=== PATIENT | male | born 1970 | race Caucasian/White ===

== ENCOUNTER 2017-08-10 08:21 | Inpatient (IN) | payer MEDICARE, BC, OTHER ==
[~2017-08-10] VITALS: Ht 157.5 cm; Wt 79.4 kg
[2017-08-10] VITALS (14 sets, daily range): BP systolic 89–110; BP diastolic 46–77
[~2017-08-10 08:21] MED LIST: AMOXICILLIN500 MG ORAL; BARACLUDE0.5 MG ORAL; BISACODYL5 MG ORAL; FLUDROCORTISON0.1 MG PO; LEVOTHYROXINE100 MCG ORAL; OMEPRAZOLE40 M1 ORAL; OSELTAMIVIR PHO75 MG PO; PRO-AMATINE5 M1 ORAL; PROBIOTIC1 EAC2 PO; UNOBMED
--- NOTE | 2017-08-10 08:28 | Emergency Room Report ---
History of Present Illness General Chief Complaint: Altered Level of Consciousness Source: Family Member Present Illness HPI Patient is here with family his sister brought in by paramedics she reports that patient appeared sick from last week coughing Was put on antibiotics several days ago and as the patient's condition decompensated presents to the ER Patient is minimally responsive to physical stimuli he does open his eyes however appears in respiratory distress Patient has history of Down syndrome, paraplegia, cervical ostemyelitis sister reports patient has been intubated several times at [facility] Patient himself is nonverbal at this time however he has been coughing questionable low-grade fevers Decreased oral intake History of present illness is limited given the patient's mentation Allergies: Coded Allergies: No Known Allergies (Unverified , 08/10/17) Patient History Limited by: medical condition Past Medical History: see triage record Pertinent Family History: unable to obtain Reviewed Nursing Documentation: PMH: Agreed, PSxH: Agreed Review of Systems All Other Systems: limited - Other than the ones mentioned in the history of present illness all others are reviewed however they do stay limited due to the patient's mental status Physical Exam Vital Signs Date Time Temp Pulse Resp B/P (MAP) Pulse Ox O2 Delivery O2 Flow Rate FiO2 08/10/17 08:06 99.0 91 28 97/37 96 Nasal Cannula 4.0 Sp02 EP Interpretation: reviewed, normal General Appearance: moderate distress - Patient appears tachypneic, appears ill Head: other - Patient has facial and occipital features in line with Down syndrome Eyes: bilateral eye PERRL ENT: dry mucus membranes Neck: supple, other - Tracheostomy scar in place Respiratory: crackles - Bilaterally, patient has appearance of labored respiration with costophrenic angle retractions Cardiovascular #1: regular rate, rhythm Gastrointestinal: distended - With large midabdominal scar decreased bowel sounds Genitourinary: no CVA tenderness Musculoskeletal: other - Paraplegia, patient has decreased movement in upper extremities, does purposefully move both arms supports physical stimuli Neurologic: other - Decreased GCS, patient responds to physical stimuli, is nonverbal Skin: no rash Lymphatic: no adenopathy Procedures Critical Care Time Critical Care Time 50 minutes for critical presentation, findings concerning for end of life and end organ pathology consultants discussion with family not including any procedural time Medical Decision Making Diagnostic Impression: Primary Impression: Respiratory distress Additional Impressions: Renal insufficiency CHF (congestive heart failure) Aspiration into airway ER Course Patient presents in extremely critical condition Hypotensive with labored respirations X-ray imaging is abnormal with appearance of mixed picture infiltrate with congestion as well initial ABG is extremely concerning with acidosis and low pH Repeat ABG has improved on BiPAP Patient remains much more oriented Opens eyes to simple verbal commands Patient was provided with diuretics Antibiotics At this time daughter at bedside reports that patient is intubated every time he goes to [facility] She does clalify that he has been intubated multiple times but not on every presentation Patient is in critical condition Pulmonology environmental auditor the patient is at bedside as well Given the improved ABG, airway intubation has been held thus far However given the patient's critical presentation patient could deteriorate I have explained to the family on multiple occasions given the patient's presentation with the possibility of this occurring Patient is extremely poor prognosis And admitted to intensive care unit for critical care Labs Test 08/10/17 08:21 08/10/17 08:45 08/10/17 08:58 08/10/17 10:09 Arterial Blood pH 7.160 (7.350-7.450) 7.210 (7.350-7.450) Arterial Blood Partial Pressure CO2 83.9 mmHg (35.0-45.0) 67.2 mmHg (35.0-45.0) Arterial Blood Partial Pressure O2 62.5 mmHg (75.0-100.0) 67.6 mmHg (75.0-100.0) Arterial Blood HCO3 29.6 mmol/L (22.0-26.0) 26.7 mmol/L (22.0-26.0) Arterial Blood Oxygen Saturation 93.0 % (92.0-98.0) 92.0 % (92.0-98.0) Arterial Blood Base Excess -1.6 -1.9 Rigo Test Positive Positive Urine Color Pale yellow Urine Appearance Cloudy Urine pH 5 (4.5-8.0) Urine Specific Tyler 1.015 (1.005-1.035) Urine Protein 3+ (NEGATIVE) Urine Glucose (UA) Negative (NEGATIVE) Urine Ketones 1+ (NEGATIVE) Urine Occult Blood 5+ (NEGATIVE) Urine Nitrite Negative (NEGATIVE) Urine Bilirubin Negative (NEGATIVE) Urine Urobilinogen Normal MG/DL (0.0-1.0) Urine Leukocyte Esterase 3+ (NEGATIVE) Urine RBC 5-10 /HPF (0 - 0) Urine WBC 30-40 /HPF (0 - 0) Urine Squamous Epithelial Cells Few /LPF (NONE/OCC) Urine Bacteria Moderate /HPF (NONE) White Blood Count 3.3 K/UL (4.8-10.8) Red Blood Count 3.22 M/UL (4.70-6.10) Hemoglobin 11.9 G/DL (14.2-18.0) Hematocrit 36.0 % (42.0-52.0) Mean Corpuscular Volume 112 FL (80-99) Mean Corpuscular Hemoglobin 36.9 PG (27.0-31.0) Mean Corpuscular Hemoglobin Concent 33.0 G/DL (32.0-36.0) Red Cell Distribution Width 14.4 % (11.6-14.8) Platelet Count 61 K/UL (150-450) Mean Platelet Volume 7.5 FL (6.5-10.1) Neutrophils (%) (Auto) % (45.0-75.0) Lymphocytes (%) (Auto) % (20.0-45.0) Monocytes (%) (Auto) % (1.0-10.0) Eosinophils (%) (Auto) % (0.0-3.0) Basophils (%) (Auto) % (0.0-2.0) Differential Total Cells Counted 100 Neutrophils % (Manual) 79 % (45-75) Lymphocytes % (Manual) 11 % (20-45) Monocytes % (Manual) 6 % (1-10) Eosinophils % (Manual) 0 % (0-3) Basophils % (Manual) 0 % (0-2) Band Neutrophils 4 % (0-8) Nucleated Red Blood Cells 1 /100 WBC Platelet Estimate Decreased Platelet Morphology Normal Anisocytosis 1+ Macrocytosis 1+ Sodium Level 133 MMOL/L (136-145) Potassium Level 5.6 MMOL/L (3.5-5.1) Chloride Level 102 MMOL/L (98-107) Carbon Dioxide Level 29 MMOL/L (21-32) Anion Gap 2 mmol/L (5-15) Blood Urea Nitrogen 53 mg/dL (7-18) Creatinine 2.4 MG/DL (0.55-1.30) Estimat Glomerular Filtration Rate 29.2 mL/min (>60) Glucose Level 187 MG/DL (74-106) Lactic Acid Level 0.90 mmol/L (0.66-2.22) Calcium Level 7.9 MG/DL (8.5-10.1) Total Bilirubin 0.7 MG/DL (0.2-1.0) Aspartate Amino Transf (AST/SGOT) 28 U/L (15-37) Alanine Aminotransferase (ALT/SGPT) 8 U/L (12-78) Alkaline Phosphatase 65 U/L (46-116) Total Creatine Kinase 75 U/L (26-308) Creatine Kinase MB 1.2 NG/ML (0.0-3.6) Creatine Kinase MB Relative Index 1.6 Troponin I 0.187 ng/mL (0.000-0.056) Pro-B-Type Natriuretic Peptide 67161 pg/mL (0-125) Total Protein 7.9 G/DL (6.4-8.2) Albumin 2.5 G/DL (3.4-5.0) Globulin 5.4 g/dL Albumin/Globulin Ratio 0.5 (1.0-2.7) EKG Diagnostic Results Rate: normal Rhythm: NSR ST Segments: other - Nonspecific ST T-wave changes Rhythm Strip Diag. Results EP Interpretation: yes Rate: 65 Rhythm: NSR, no PVC's, no ectopy Chest X-Ray Diagnostic Results Chest X-Ray Diagnostic Results : Chest X-Ray Ordered: Yes # of Views/Limited/Complete: 1 View Indication: Shortness of Breath EP Interpretation: Yes Interpretation: no pneumothorax, other - Bilateral pulmonary congestion, difficult to evaluate underlying infiltrate heart size borderline enlarged, Impression: Other - congestion, possible infiltrate Electronically Signed by: Jun Davidson DO Last Vital Signs Date Time Temp Pulse Resp B/P (MAP) Pulse Ox O2 Delivery O2 Flow Rate FiO2 08/10/17 08:06 99.0 91 28 97/37 96 Nasal Cannula 4.0 Status: improved Disposition: ADMITTED INPATIENT Condition: Critical JUN DAVIDSON D.O. Aug 10, 2017 08:28
[2017-08-10] MEDS ORDERED: cefTRIAXone 1 GM in NS 55 ML IVPB ONE (09:15)
[2017-08-10] MEDS ORDERED: Azithromycin 500 MG in NS 275 ML IV ONE (09:15)
[2017-08-10] MEDS ORDERED: Sodium Chloride 500ML 500 ML IV ONE (09:15)
[2017-08-10 09:16] LABS: APPEARANCE,URINE CLOUDY; BILIRUBIN, URINE NEGATIVE (NEGATIVE); GLUCOSE, URINE (UA) NEGATIVE (NEGATIVE); KETONES,URINE 1+ (NEGATIVE); LEUKOCYTE ESTERASE ,URINE 3+ (NEGATIVE); NITRITE,URINE NEGATIVE (NEGATIVE); PH,URINE 5 (4.5-8.0); PROTEIN,URINE 3+ (NEGATIVE); UROBILINOGEN,URINE NORMAL MG/DL (0.0-1.0)
[2017-08-10 09:26] LABS: HEMOGLOBIN 11.9 G/DL (14.2-18.0); MEAN CORPUSCULAR VOLUME 112 FL (80-99); PLATELET COUNT 61 K/UL (150-450); RED BLOOD COUNT 3.22 M/UL (4.70-6.10); RED CELL DISTRIBUTION WIDTH 14.4 % (11.6-14.8); WHITE BLOOD COUNT 3.3 K/UL (4.8-10.8)
[2017-08-10 09:34] LABS: COLOR,URINE PALE YELLOW
[2017-08-10 09:37] LABS: ANION GAP 2 mmol/L (5-15); BLOOD UREA NITROGEN 53 mg/dL (7-18); CALCIUM 7.9 MG/DL (8.5-10.1); CARBON DIOXIDE 29 MMOL/L (21-32); CHLORIDE 102 MMOL/L (98-107); CREATININE 2.4 MG/DL (0.55-1.30); POTASSIUM 5.6 MMOL/L (3.5-5.1); SODIUM 133 MMOL/L (136-145)
[2017-08-10] MEDS ORDERED: NS 275 ML ONE (09:47)
[2017-08-10] MEDS ORDERED: Azithromycin 500mg Inj IV ONE (09:48)
[2017-08-10 09:53] LABS: ALANINE AMINOTRANSFERASE 8 U/L (12-78); ALBUMIN 2.5 G/DL (3.4-5.0); ALBUMIN/GLOBULIN RATIO 0.5 (1.0-2.7); ALKALINE PHOSPHATASE 65 U/L (46-116); ASPARTATE AMINO TRANSFERASE 28 U/L (15-37); BILIRUBIN,TOTAL 0.7 MG/DL (0.2-1.0); CKMB 1.2 NG/ML (0.0-3.6); CREATINE KINASE 75 U/L (26-308)
--- NOTE | 2017-08-10 11:16 | Diagnostic Imaging Report ---
Indication: Shortness of breath Technique: One view of the chest Comparison: none Findings: Heart is enlarged. There is bilateral interstitial and airspace edema and small bilateral pleural effusions. Postsurgical changes of the cervical spine are noted Impression: Findings consistent with congestive heart failure
[2017-08-10] MEDS: Albuterol/Ipratropium 3ml neb HHN SCH ×2 (13:00→19:42)
[2017-08-10] MEDS ORDERED: Zoysn 3.37gm in NS 100ML IVPB SCH (14:00)
[2017-08-10] MEDS ORDERED: Vancomycin 1250mg/D5W 250ml IVPB ONE (14:00)
[2017-08-10] MEDS ORDERED: NovoLOG Insulin Flexpen SUBQ SCH (16:30)
[2017-08-11] MEDS ORDERED: Lactobacillus-GG tablet NG SCH (09:00)
--- NOTE | 2017-08-11 09:45 | Diagnostic Imaging Report ---
Indication: Post nasogastric tube placement Technique: One view of the chest Comparison: 6 hours earlier Findings: Is a nasogastric tube, tip in the level of the midesophagus, and it appears that the shaft is coiled in the hypopharynx. Bilateral pulmonary edema persists, appears slightly worse. There appears to be increasing pleural fluid on the right. Impression: Malposition of nasogastric tube, as described Worsening pulmonary edema and right-sided pleural fluid, over 6 hours This agrees with the preliminary interpretation provided overnight by [facility] service.
--- NOTE | 2017-08-11 10:38 | Diagnostic Imaging Report ---
Indication: Post nasogastric tube placement Technique: Supine view of the abdomen Comparison: 4 hours earlier Findings: Again demonstrated is the tip of the nasogastric tube at the level of the midesophagus. Bilateral nephroureteral stents are noted. Considerable gas is seen within the colon. There is suggestion of splenomegaly. There is bilateral pulmonary parenchymal disease and left-sided pleural fluid Impression: Persistent malposition of nasogastric tube, tip in the midesophagus. Other findings as noted This agrees with the preliminary interpretation provided overnight by [facility] service.
[2017-08-11] MEDS ORDERED: Vancomycin 750mg/D5W 275ml IVPB SCH ×2 (14:00)
--- NOTE | 2017-08-11 23:05 | Consultation ---
DATE OF CONSULTATION: 08/10/2017 NEPHROLOGY CONSULTATION CONSULTING PHYSICIAN: Arcenio Ortega M.D. REFERRING PHYSICIAN: Jose Manuel Andino M.D. REASON FOR CONSULTATION: Hyperkalemia and azotemia. HISTORY OF PRESENT ILLNESS: The patient is well known to me with history of Down syndrome, cirrhosis of chronic liver disease, chronic kidney disease, diabetes, proteinuria, and paraplegia. He lives at home with family. He presents with respiratory distress and congestive heart failure. He is unable to give a history, but history is obtained from the family and from prior exams. SURGERIES: Tracheostomy, abdominal surgery I believe it was for bowel ischemia or diverticular disease, but I will have to review. He also had a gastrostomy feeding tube and cervical lumbar spine surgeries. MEDICATIONS AT HOME: 1. Spironolactone 25 mg b.i.d. 2. Entecavir 0.5 mg daily. 3. Dulcolax suppository or pills daily. 4. Midodrine 5 mg daily. 5. Levothyroxine 100 mcg daily. 6. Fludrocortisone two tablets daily. 7. Floranex one tablet daily. 8. Omeprazole 20 mg b.i.d. 9. Viread 300 mg daily. 10. He also had ampicillin started the day prior to admission and Lantus 12 units at bedtime. ALLERGIES: None known. HABITS: He is a nondrinker and nonsmoker. No use of illicit drugs. SYSTEM REVIEW: Major problems include: 1. Diabetes. 2. Chronic hepatitis, I believe hepatitis B with cirrhosis. 3. Ascites. 4. Down syndrome. 5. Paraplegia. 6. Obesity-hypoventilation syndrome. 7. Chronic low blood pressure. 8. Recurrent abdominal problems. 9. Gastritis. PHYSICAL EXAMINATION: GENERAL: The patient was seen in the ICU. He is on BiPAP. VITAL SIGNS: Pulse 85, respirations 14, blood pressure 100/58, pulse oximetry 95% on 40%, and temperature 98.1. HEAD, EYES, EARS, NOSE, AND THROAT: His eyes are closed during the exam. He has BiPAP. Oral mucosa appears moist. NECK: Close tracheostomy. LUNGS: Distant breath sounds. Few rhonchi. HEART: Regular rhythm and tachycardic. No murmur. ABDOMEN: Obese and soft. I am unable to feel liver or spleen. EXTREMITIES: Trace edema. He has a brace on his right leg due to prior leg injury. NEUROLOGIC: The patient is lethargic on BiPAP. He is paraplegic. PERTINENT LABORATORY DATA: Urinalysis shows 3+ protein, 5-10 red cells, 30-40 white cells per high-power field. Sodium is 133, potassium 5.6, chloride 102, CO2 29, BUN 53, creatinine 2.4, and glucose 187. Troponin 0.187. BNP 20,017. Albumin is 2.5. White count is 3.3 and hemoglobin 11.9. The pH 7.21, pCO2 67.2, and pO2 is 67.6. IMPRESSION: 1. Congestive heart failure, acute on chronic. 2. Respiratory failure, acute on chronic. 3. Chronic kidney disease, stage 4 with proteinuria. 4. Diabetic nephropathy. 5. Chronic hepatitis B with cirrhosis. 6. Down syndrome. 7. Paraplegia. PLAN: I will arrange diuresis. Potassium was high and spironolactone will be stopped for now. Detailed ICU orders have been reviewed and updated. His condition is critical. Case is discussed in detail with the family. Arcenio Ortega M.D. DR: Pushpa JOB#: [id number] CC:
--- NOTE | 2017-08-11 23:05 | History and Physical Report ---
DATE OF ADMISSION: 08/10/2017 CHIEF COMPLAINT: Respiratory distress. HISTORY OF PRESENT ILLNESS: The patient was brought to the emergency department by paramedics from home where he has full-time caregivers. He has history of Down syndrome and developed cough for several days. He was placed on antibiotics, but did not improve. He was brought to the emergency department and was poorly responsive. He had respiratory acidosis and was placed on BiPAP. Antibiotics were given. He was hypotensive and fluids were given. PAST MEDICAL HISTORY: Down syndrome, paraplegia due to cervical osteomyelitis many years ago, past tracheostomy due to respiratory failure, closed, cirrhosis due to chronic hepatitis B secondary to blood transfusion as a child, recurrent urinary infections with bilateral ureteral stents, and kidney stones. Hypothyroidism and hypotension due to cirrhosis. MEDICATIONS: Amoxicillin, Dulcolax, entecavir, fludrocortisone, lactobacillus, midodrine, omeprazole, and Tamiflu. ALLERGIES: None. REVIEW OF SYSTEMS: He is cared for at home. He has paraplegia and is bedridden and gets up in a chair. He is normally alert and responds appropriately, although he has significantly diminished intellectual function. PHYSICAL EXAMINATION: VITAL SIGNS: Show the blood pressure was as low as 89/46, as high as 100/53, temperature 99 degrees, pulse is 79 to 94, respirations 12 to 28, and saturation is presently satisfactory on BiPAP. GENERAL: He is overweight. He is lethargic. HEENT: The head is normocephalic. NECK: No jugular venous distention. Tracheostomy scar is healed. CHEST: Has rhonchi. CARDIAC: Rhythm is regular. ABDOMEN: Soft and nontender. There are no ascites or mass. Liver and spleen are not enlarged. EXTREMITIES: No clubbing, cyanosis, or edema. The legs are cool. LABORATORY DATA: Laboratory studies show the white count is low at 3300 with a left shift, hemoglobin is 11.9, and platelets 61,000. Blood gas shows pH 7.16, pCO2 84, and pO2 62. This improved after BiPAP to pH 7.21, pCO2 62, and pO2 67. Chemistry shows sodium 133, potassium 5.6, BUN 53, and creatinine 2.4. Natriuretic peptide 20,000. Albumin 2.5. Glucose 187. Urinalysis shows 30 to 40 white cells. Influenza screen is negative. Chest x-ray shows bilateral vascular congestion and some airspace edema, pneumonia cannot be excluded. Cervical spine surgical changes are noted. IMPRESSIONS: 1. Acute respiratory failure. 2. Congestive heart failure. 3. Probable pneumonia. 4. Paraplegia due to past cervical osteomyelitis. 5. Hypotension due to sepsis and hepatic cirrhosis. 6. Pancytopenia. 7. Acute kidney injury, superimposed on chronic kidney disease. PLAN: The patient will be given intravenous antibiotics and BiPAP. We will admit to intensive care. Lasix will be given. An echocardiogram will be obtained. Cardiology, Infectious Disease, and Nephrology consultations will be obtained. The family has requested transfer to [facility] if the bed is available. Jose Manuel Andino M.D. DR: Georgina JOB#: [id number] CC:
--- NOTE | 2017-08-11 23:05 | Consultation ---
DATE OF CONSULTATION: 08/10/2017 CARDIOLOGY CONSULTATION REQUESTING PHYSICIAN: Jose Manuel Andino M.D. REASON FOR CONSULTATION: Congestive heart failure. HISTORY OF PRESENT ILLNESS: This is a 46-year-old male with Down syndrome, who was brought into the emergency room by paramedics. The patient apparently has been coughing for the past week or so and his condition despite oral antibiotics worsened. He was minimally responsive upon arrival to the emergency room and was placed on BiPAP support. PAST MEDICAL HISTORY: Include Down syndrome, paraplegia, history of cervical osteomyelitis, and history of respiratory failure. There is no known history of cardiovascular disease. In fact, his mother states "his heart is strong." The patient has been noted to have increasing congestion and elevated natriuretic peptide assay and radiographic signs of pulmonary edema. MEDICATIONS: Reviewed and reconciled. ALLERGIES: None. SOCIAL HISTORY: Negative for smoking or alcohol use. No substance abuse. REVIEW OF SYSTEMS: Otherwise unremarkable. PHYSICAL EXAMINATION: VITAL SIGNS: Initial blood pressure 97/37 with heart rate 91, respiratory rate of 28, and temperature of 99. Currently, blood pressure 100/58, heart rate 85, and respirations 14. He is saturating 95% on 40% BiPAP. LUNGS: Bilateral breath sounds with few rales. HEART: Regular rhythm and rate. Normal S1 and S2 with no murmur, but respiratory sounds obscure exam. ABDOMEN: Soft. EXTREMITIES: With dependent edema. LABORATORY AND DIAGNOSTIC DATA: EKG, sinus rhythm, incomplete right bundle-branch block, nonspecific ST change. Sodium 133, potassium 5.6, BUN 53, and creatinine 3.4. Troponin 0.187. Albumin 2.5. IMPRESSION: 1. Acute respiratory insufficiency. 2. Acute systolic and diastolic congestive heart failure. 3. Acute myocardial ischemia. 4. Acute renal failure, probable pneumonia. 5. Down syndrome. 6. Acute on chronic respiratory acidosis. PLAN: 1. Monitor acid-base parameters. 2. Continue BiPAP support. 3. Broad-spectrum antibiotics. 4. . 5. Echocardiogram. 6. Further recommendations will follow. Pardeep Azul M.D. DR: Raquel JOB#: [id number] CC:
--- NOTE | 2017-08-12 10:35 | Cardiology Report ---
APPROVED REPORT EXAM: Two-dimensional and M-mode echocardiogram with Doppler and color Doppler. INDICATION Ventricular Function M-Mode DIMENSIONS IVSd1.1 (0.7-1.1cm)Left Atrium (MM)3.4 (1.6-4.0cm) LVDd4.1 (3.5-5.6cm)Aortic Root2.9 (2.0-3.7cm) PWd1.0 (0.7-1.1cm)Aortic Cusp Exc.1.8 (1.5-2.0cm) LVDs2.0 (2.5-4.0cm) PWs1.9 cm Technically difficult study due to patient resistance. Study quality precludes accurate assessment of regional wall motion. Normal left ventricular chamber size, systolic function and wall motion. Left ventricular ejection fraction estimated to be 60-65 %. Borderline left ventricular hypertrophy. Anterior Echo-free space, may be due to pericardial fat or effusion. All other cardiac chamber sizes are within normal limits. Normal appearing aortic valve structure. Thickened mitral valve leaflets with normal excursion. Mild mitral annulus and aortic root calcification. Normal pulmonic valve structure. Normal tricuspid valve structure. IVC measures at 1.9 cm with partial physiological collapse. A color flow and spectral Doppler study was performed and revealed: No aortic insufficiency. No mitral regurgitation. Normal left ventricular diastolic function. Mild tricuspid regurgitation. Tricuspid systolic velocities suggests peak right ventricular systolic pressure of 39 mmHg, consistent with mild pulmonary hypertension. Mild pulmonic regurgitation present.
--- NOTE | 2017-08-12 18:30 | Cardiology Report ---
APPROVED REPORT EKG Measurement Heart [id number] Normal sinus rhythm Incomplete right bundle branch block Nonspecific ST and T wave abnormality Abnormal ECG
--- NOTE | 2017-08-13 13:27 | Discharge Summary ---
Discharge Summary Hospital Course Date of Admission Aug 10, 2017 at 09:22 Date of Discharge Aug 10, 2017 at 21:45 Admitting Diagnosis Respiratory Distress, Aspiration pneumonia DANIELLE Shah is a 46 year old male who was admitted on Aug 10, 2017 at 09:22 for Respiratory Distress,Aspiration Pnuemonia Hospital Course dc summary #[id number] Discharge Discharge Disposition Patient was discharged to [facility] Discharge Diagnoses: Discharge Instructions Discharge Instructions Special Instructions I have been assigned to complete a D/C Summary on this account. I was not involved in the patient management Sade Sinha NP (Vanchtein) Aug 13, 2017 13:27
--- NOTE | 2017-08-14 | Discharge Summary 2 SIG ---
DATE OF ADMISSION: 08/10/2017 DATE OF DISCHARGE: 08/10/2017 REASON FOR ADMISSION: 46-year-old male with history of Down syndrome, paraplegia, cervical osteomyelitis, history of several intubations in the past, was brought to emergency room for evaluation. The patient had cough for few days, was placed on antibiotics, however, his symptoms were getting progressively worse and he was poorly responsive. Upon evaluation in the emergency department, the patient was found to have respiratory acidosis with hypercapnia and was placed on the BiPAP. The patient was tachypneic and hypotensive. Initial ABG revealed pH -7.16 and CO2 -83.9. After being on the BiPAP, ABG showed some improvement with a pH of 7.21 and CO2- 67.2. Chest x-ray revealed bilateral vascular congestion and some airspace edema. Pneumonia could not be excluded. Noted cervical spine surgical changes. Sodium -133, potassium -5.6, BUN -53, and creatinine -2.4. Troponin elevated -0.187. ProBNP -20,017. EKG showed sinus rhythm with nonspecific ST-T wave changes. Urinalysis was consistent with urinary tract infection. No leukocytosis. Albumin -2.5. Glucose- 187. Platelets -61, WBC- 3.3 with left shift, hemoglobin -11.9, and MCV of 112. The patient admitted with diagnosis of acute respiratory failure requiring BiPAP, probably pneumonia, acute myocardial ischemia, congestive heart failure, acute on chronic paraplegia secondary to history of cervical osteomyelitis, hypotension secondary to sepsis and hepatic cirrhosis, pancytopenia, acute kidney injury on chronic kidney disease and Down syndrome. HOSPITAL COURSE: The patient admitted to ICU. The patient was placed on the BiPAP, settings were titrated. After being pancultured, the patient was started on empiric antibiotics. Diuresis provided with IV Lasix. Cardiorenal parameters and volumes were closely monitored. Echocardiogram revealed preserved ejection fraction of 60% to 65%, right ventricular systolic pressure of 39 consistent with mild pulmonary hypertension. Cardiology, ID, and Nephrology consults were requested. Family requested transfer to [facility] where the patient usually hospitalized if the bed was available. Tacking Machine Operator seen and evaluated the patient, diagnosed the patient with acute myocardial ischemia and acute on chronic congestive heart failure. Echocardiogram was reviewed. The patient needed diuresis per psychologist chief and monitoring of serial troponin. Multi Disciplined Language Analyst seen and evaluated the patient. According to radio journalist, the patient had a chronic kidney disease stage 4 as well as the diabetic nephropathy. Renal parameters and electrolytes were closely monitored. Nephrotoxics were avoided. Spironolactone stopped secondary to hyperkalemia. The patient had a history of chronic hepatitis B infection with cirrhosis. Pancytopenia and macrocytic anemia secondary to cirrhosis. Bed was found and secured at [facility]. The patient was transferred via [facility] ambulance. FINAL DIAGNOSES: 1. Acute respiratory failure, requiring BiPAP 2. Probably pneumonia. 3. Congestive heart failure, acute on chronic. 4. Acute myocardial ischemia. 5. Acute on chronic respiratory acidosis. 6. Chronic kidney disease stage 4. 7. Diabetic nephropathy. 8. Chronic hepatitis B infection with cirrhosis. 9. Hypotension secondary to sepsis and cirrhosis. 10. Pancytopenia. 11. Down syndrome. 12. Paraplegia secondary to history of cervical osteomyelitis. DISCHARGE INSTRUCTIONS: The patient was transferred to [facility]. Follow up with the admitting doctor at the facility. DISCHARGE MEDICATIONS: List of medication was sent with the paramedics for admitting facility. Jose Manuel Andino M.D. I have been assigned to dictate discharge summary on this account and I was not involved in the patient's management. Sade Simmsgarnet healthLisandro N.P. DR: CHANI JOB#: [id number] CC: LADAN
== END 2017-08-10 21:45 | disposition short-term general hospital (02) | DRG 189 ==
LOC: EMR 09:13 → ICU 09:22 → EDBEDREQ 10:48
PROC: 5A09357 Assistance with Respiratory Ventilation, Less than 24 Consecutive Hours, Continuous Positive Airway Pressure (ICD-10-PCS; principal; 2017-08-10)
DX: J96.00 Acute respiratory failure, unspecified whether with hypoxia or hypercapnia (principal); I50.43 Acute on chronic combined systolic (congestive) and diastolic (congestive) heart failure; J18.9 Pneumonia, unspecified organism; D61.818 Other pancytopenia; I95.89 Other hypotension; N17.9 Acute kidney failure, unspecified; G82.20 Paraplegia, unspecified; N18.4 Chronic kidney disease, stage 4 (severe); E66.2 Morbid (severe) obesity with alveolar hypoventilation; B18.1 Chronic viral hepatitis B without delta-agent; E11.22 Type 2 diabetes mellitus with diabetic chronic kidney disease; I51.3 Intracardiac thrombosis, not elsewhere classified; Q90.9 Down syndrome, unspecified; B94.8 Sequelae of other specified infectious and parasitic diseases; E03.9 Hypothyroidism, unspecified; K29.70 Gastritis, unspecified, without bleeding; K74.60 Unspecified cirrhosis of liver; E87.5 Hyperkalemia
CPT/HCPCS: 36415; 36600; 51702; 71045; 74018; 80053; 81003; 82550; 82553; 82803; 82962; 83605; 83880; 84484; 85007; 85025; 86710; 87040; 87086; 87181; 93005; 93306; 94640; 94660; 94664; J1815; J7620